=== PATIENT | male | born 1955 | race Caucasian/White ===

== ENCOUNTER 2023-05-29 16:59 | Day surgery (SDC) | payer MEDICARE ==
[2023-05-29] VITALS (9 sets, daily range): BP systolic 118–178; BP diastolic 78–99; PULSE 92–104; TEMP 97.6–98.4
[~2023-05-29] VITALS: Ht 175.3 cm; Wt 73.1 kg
[2023-05-29] MEDS ORDERED: CALAN120 MG PO (17:36)
[2023-05-29] MEDS ORDERED: LIPITOR20 MG PO (17:37)
[2023-05-29] MEDS ORDERED: PRILOSEC 20MG20 MG PO (17:38)
[2023-05-29] MEDS ORDERED: FLEXERIL 1010 MG/TAB PO (17:38)
[2023-05-29] MEDS ORDERED: fentaNYL 50 MCG/ML 2 ML VIAL ONE (18:16)
[2023-05-29] MEDS ORDERED: Naloxone 0.4 MG/ML VIAL IV PRN (18:45)
[2023-05-29] MEDS ORDERED: cefTRIAXone 1 G in Water For Injection,Sterile 10 ML IV SCH (18:45)
[2023-05-29] MEDS ORDERED: Ondansetron 4 MG/2 ML VIAL IV PRN (18:45)
[2023-05-29] MEDS ORDERED: Hyoscyamine 0.125 MG Sublingual TAB SL PRN (18:45)
[2023-05-29] MEDS ORDERED: Acetaminophen 325 MG TAB PO PRN (18:45)
[2023-05-29] MEDS ORDERED: Cyclobenzaprine 10 MG TAB PO PRN (18:45)
[2023-05-29] MEDS ORDERED: dexAMETHasone 10 MG/ML VIAL ONE (18:58)
[2023-05-29] MEDS ORDERED: Ondansetron 4 MG/2 ML VIAL ONE (18:58)
[2023-05-29] MEDS ORDERED: Iohexol 300 - 10 ML VIAL URETER -L ONE (19:05)
[2023-05-29] MEDS ORDERED: Lidocaine 2% (20 MG/ML) 20 ML UROJET UR ONE (19:15)
[2023-05-29] MEDS ORDERED: Acetaminophen 500 MG TAB PO SCH (19:42)
[2023-05-29] MEDS ORDERED: Atorvastatin 20 MG TAB PO SCH (21:00)
[2023-05-30 04:00] VITALS: BP 144/82; PULSE 94; TEMP 98.1
[2023-05-30 04:05] VITALS: BP_SYST 144
--- NOTE | 2023-05-30 06:00 | NUR ---
ASSESSMENT COMPLETE FOR [employer]. PT ARRIVED BACK TO THE UNIT FROM PACU AT 2000HRS. VSS; O2 RA. PT'S FIRST URINE OUTPUT BLOOD-TINGED. ALL OTHER URINE OUTPUT YELLOW (NO BLOOD). PT COMPLAINED OF SOME LEFT SHOULDER/ARM DISCOMFORT. PT GIVEN FLEXERIL PER REQUEST. PT FELT FLEXERIL WAS EFFECTIVE FOR HIS LUE DISCOMFORT. PT DENIED CHEST PAIN, PALPITATIONS, SOB, N,V,D OR DIZZINESS. PT EXPRESSED NO ADDITIONAL NEEDS. CALL LIGHT WITHIN REACH.
[2023-05-30] MEDS ORDERED: Omeprazole 10 MG **** subs to Pantoprazole 20 MG PO SCH (07:00)
[2023-05-30 07:15] VITALS: BP 147/89; PULSE 92; TEMP 98.2
--- NOTE | 2023-05-30 08:35 | NUR ---
PATIENT SITTING UP IN BED UPON ENTERING ROOM. MORNING MEDICATIONS ADMINISTERED. PATIENT STATES HIS WILL BE ARRIVING SOON WITH HIS MORNING MEDICATIONS, THIS RN INFORMED PATIENT HE CAN ONLY TAKE MEDICATIONS ADMINISTERED BY NURSING STAFF WHILE IN THE HOSPITAL, PATIENT VOICES HIS UNDERSTANDING. SHIFT ASSESSMENT COMPLETED. PATIENT STATES HE FEELS BETTER THAN HE HAS IN A LONG TIME. PATIENT REPORTS NO PROBLEMS WITH URINATING. CALL LIGHT WITHIN REACH. UPDATED PATIENT ON PLAN OF CARE. WILL CONTINUE TO MONITOR.
[2023-05-30 08:40] VITALS: BP_SYST 147
[2023-05-30] MEDS ORDERED: Verapamil SR 120 MG TAB PO SCH (09:00)
[2023-05-30 11:12] VITALS: BP 144/90; PULSE 98; TEMP 98
--- NOTE | 2023-05-30 12:47 | NUR ---
Data: [facility] [employer] visit attempted during [facility] [employer] rounds. Patient has three visitors. Watching [employer] basketball game on his cellphone. Wishes the hospital had a better cable package so that he could watch the game on TV. Lunch is expected within the hour. Hopes to discharge after lunch. Assessment: Politely declined [facility] [employer] Justice visit. Plan of Care: [facility] [employer] Justice wished Patient good luck with his basketball team and with his discharge. Patient thanked High [employer] Justice.
[2023-05-30 13:34] VITALS: BP_SYST 144
--- NOTE | 2023-05-30 13:36 | NUR ---
IV DISCONTINUED. DISCHARGE INSTRUCTIONS REVIEWED, ALL QUESTIONS ANSWERED. PATIENT ESCORTED OFF OF UNIT BY VIA [employer] STAFF.
== END 2023-05-30 13:58 | disposition home or self-care (01) ==
LOC: MEDICAL 16:59 → SDCO 16:59 → MEDICAL 16:59 → SDCO 05-30 13:58 → MEDICAL 05-30 13:58
DX: N13.2 Hydronephrosis with renal and ureteral calculous obstruction (principal)
CPT/HCPCS: OP; C1769; C2617; G0378; G0379; J0690; J0696; J1100; J2405; J2704; J3010; Q9967